=== PATIENT | female | born 1980 | race Caucasian/White ===

== ENCOUNTER 2020-08-20 07:20 | Day surgery (SDC) | payer OTHER ==
[~2020-08-20] VITALS: Ht 149.9 cm; Wt 114.3 kg
[2020-08-20] MEDS ORDERED: fentaNYL citrate 0.05 MG/ML VIAL ONE (09:35)
[2020-08-20] MEDS ORDERED: MIDAZOLAM 5 MG/5 ML VIAL ONE (09:35)
[2020-08-20] MEDS ORDERED: MIDAZOLAM 2 MG/2 ML VIAL IVP ONE (09:55)
== END 2020-08-20 10:15 | disposition home or self-care (01) ==
LOC: MDS 07:20 → MMU 07:20 → MDS 10:15
PROVIDERS: ATTEND Internal Medicine Gastroenterology
DX: R10.13 Epigastric pain (principal); K20.90 Esophagitis, unspecified without bleeding; F32.9 Major depressive disorder, single episode, unspecified; E66.01 Morbid (severe) obesity due to excess calories; Z68.43 Body mass index [BMI] 50.0-59.9, adult; Z79.899 Other long term (current) drug therapy
CPT/HCPCS: 36415; 43239; 86677; J2250; J3010